=== PATIENT | female | born 1980 | race Hispanic/Latino ===

== ENCOUNTER 2018-02-04 21:28 | Inpatient (IN) | payer MEDICAID ==
[~2018-02-04] VITALS: Ht 154.9 cm; Wt 83.5 kg
[~2018-02-04 21:28] MED LIST: PREN-196 PO
[2018-02-04 22:00] VITALS: BP 120/78
[2018-02-04] MEDS ORDERED: NALOXONE HCL 0.4 MG/1 ML ML IV PRN (22:00)
[2018-02-04] MEDS ORDERED: EPHEDRINE SULFATE 50 MG/ML AMPULE IVP PRN (22:00)
[2018-02-04] MEDS ORDERED: AMPICILLIN 2GM+NS 100ML 100 ML IV SCH (22:00)
[2018-02-04] MEDS ORDERED: LACTATED RINGERS 500 ML 500 ML IV PRN (22:00)
[2018-02-04 22:26] LABS: APPEARANCE,URINE Cloudy (CLEAR); BILIRUBIN,URINE Negative (NEGATIVE); COLOR,URINE Yellow (YELLOW); GLUCOSE, URINE (UA) Negative (NEGATIVE); KETONES,URINE 15 mg/dL (NEGATIVE); LEUKOCYTE ESTERASE ,URINE Moderate (NEGATIVE); NITRATE,URINE Negative (NEGATIVE); OCCULT BLOOD,URINE Negative (NEGATIVE); PROTEIN,URINE Negative (NEGATIVE)
[2018-02-04] MEDS: LACTATED RINGERS 1000ML 1,000 ML IV PRN (22:43)
[2018-02-04 22:52] LABS: BACTERIA,URINE Moderate /HPF (None Seen); MUCUS,URINE Moderate LPF (None Seen); RBC,URINE 0-1 /HPF (0-1); SQUAMOUS EPITHELIAL CELL,UR Moderate /HPF (0-2)
[2018-02-04 22:59] LABS: AMPHET/METH SCREEN,URINE NEGATIVE (NEGATIVE); BARBITURATE SCREEN, URINE NEGATIVE (NEGATIVE); BENZODIAZEPINES SCREEN,URINE NEGATIVE (NEGATIVE); CANNABINOID SCREEN,URINE NEGATIVE (NEGATIVE); COCAINE SCREEN,URINE NEGATIVE (NEGATIVE); OPIATE SCREEN,URINE NEGATIVE (NEGATIVE); PHENCYCLIDINE SCREEN,URINE NEGATIVE (NEGATIVE)
[2018-02-04 23:26] LABS: HEMATOCRIT 35.1 % (36-48); MEAN CORPUSCULAR HEMOGLOBIN 31.8 pg (27.0-33.0); MEAN CORPUSCULAR HGB CONC 35.1 g/dL (32.0-36.0); MEAN CORPUSCULAR VOLUME 90.6 fL (79-99); NUCLEATED RED BLOOD CELLS 0.1 % (0.0-0.19); PLATELET COUNT (AUTO) 200 K/uL (130-400); RED BLOOD CELL COUNT(AUTO) 3.87 MIL/uL (4.00-5.50); RED CELL DISTRIBUTION WIDTH 18.4 % (11.0-15.5); WHITE BLOOD COUNT (AUTO) 7.7 K/uL (4.8-10.8)
[2018-02-05] VITALS (18 sets, daily range): BP systolic 99–137; BP diastolic 54–78
[2018-02-05] MEDS: AMPICILLIN 1GM+NS 50ML 50 ML IV SCH ×4 (01:59→14:00)
[2018-02-05] MEDS ORDERED: IRON1CAP32 PO (02:34)
[2018-02-05] MEDS ORDERED: PNV1COMB11 PO (02:34)
[2018-02-05] MEDS ORDERED: LACTATED RINGERS 1000ML 1,000 ML IV ONE (04:47)
[2018-02-05] MEDS ORDERED: OXYTOCIN 10 USP UNITS/ML ONE ×3 (04:48→18:26)
[2018-02-05] MEDS ORDERED: ROPIVACAINE 0.2%200ML EPIDURAL 200 ML EP SCH (05:00)
[2018-02-05] MEDS ORDERED: OXYTOCIN 10 USP UNITS/ML 20 UNIT in LACTATED RINGERS 1000ML 1,000 ML IV SCH (05:00)
[2018-02-05] MEDS: LACTATED RINGERS 1000ML 1,000 ML IV PRN (09:09)
[2018-02-05] MEDS: OXYTOCIN-LR 20 UNITS/1000 ML 1,000 ML IV SCH (12:15)
[2018-02-05] MEDS ORDERED: LIDOCAINE HCL-MPF 2% 10ML AMP IJ ONE (12:27)
[2018-02-05] MEDS ORDERED: MIDAZOLAM HCL 1 MG/ML 2ML VIAL ONE (12:47)
[2018-02-05] MEDS ORDERED: FENTANYL CITRATE PF 50 MCG/1 ML 2ML VIAL ONE (12:59)
[2018-02-05] MEDS ORDERED: BENZOCAINE/LANOLIN/ALOE VERA 60 ML AEROSOL TP PRN (13:45)
[2018-02-05] MEDS ORDERED: LANOLIN 30GM OINTMENT TP PRN (13:45)
[2018-02-05] MEDS ORDERED: MEASLES/MUMPS/RUBELLA VACCINE, LIVE 0.5 ML/VIAL SQ PRN (13:45)
[2018-02-05] MEDS ORDERED: WITCH HAZEL 1 PAD TP PRN (13:45)
[2018-02-05] MEDS ORDERED: MEPERIDINE-PF 50 MG/ML SYG SQ PRN (13:45)
[2018-02-05] MEDS ORDERED: PROMETHAZINE HCL 25 MG/ML 1ML AMPULE IM PRN (13:45)
[2018-02-05] MEDS: IBUPROFEN 800 MG TAB PO PRN ×2 (14:57→23:23)
[2018-02-05] MEDS: ACETAMINOPHEN-CODEINE 300/30MG TAB PO PRN (18:35)
[2018-02-05] MEDS: DOCUSATE SODIUM 100 MG CAP PO SCH (21:39)
[2018-02-06] MEDS: ACETAMINOPHEN-CODEINE 300/30MG TAB PO PRN ×2 (00:53→16:03)
[2018-02-06 03:06] VITALS: BP 102/65
[2018-02-06 06:47] LABS: HEMATOCRIT 33.1 % (36-48); MEAN CORPUSCULAR VOLUME 91.5 fL (79-99); PLATELET COUNT (AUTO) 157 K/uL (130-400); RED BLOOD CELL COUNT(AUTO) 3.61 MIL/uL (4.00-5.50); RED CELL DISTRIBUTION WIDTH 18.5 % (11.0-15.5); WHITE BLOOD COUNT (AUTO) 8.6 K/uL (4.8-10.8)
[2018-02-06 07:30] VITALS: BP 118/71
[2018-02-06 08:02] LABS: HEPATITIS Bs ANTIGEN SCREEN P Negative (Negative)
[2018-02-06] MEDS: DOCUSATE SODIUM 100 MG CAP PO SCH ×2 (09:29→21:36)
[2018-02-06] MEDS: IBUPROFEN 800 MG TAB PO PRN ×2 (09:30→19:52)
[2018-02-06 11:22] VITALS: BP 128/67
[2018-02-06] MEDS: OXYTOCIN-LR 20 UNITS/1000 ML 1,000 ML IV SCH (12:15)
[2018-02-06 15:21] VITALS: BP 129/70
[2018-02-06 19:15] VITALS: BP 121/76
[2018-02-06 23:02] VITALS: BP 121/74
[2018-02-07 03:34] VITALS: BP 132/83
[2018-02-07] MEDS: IBUPROFEN 800 MG TAB PO PRN (04:06)
[2018-02-07 07:35] VITALS: BP 101/56
[2018-02-07] MEDS: DOCUSATE SODIUM 100 MG CAP PO SCH (09:04)
[2018-02-07] MEDS: ACETAMINOPHEN-CODEINE 300/30MG TAB PO PRN (09:06)
[2018-02-07 11:09] VITALS: BP 115/62
[2018-02-07] MEDS ORDERED: DOCU240C80 PO (13:08)
[2018-02-07] MEDS ORDERED: MO8B PO (13:10)
[2018-02-07] MEDS ORDERED: ACET1TAB12 PO (13:11)
== END 2018-02-07 13:40 | disposition home or self-care (01) | DRG 541 ==
LOC: LDH 21:28 → WSH 02-05 13:15
PROC: 10E0XZZ Delivery of Products of Conception, External Approach (ICD-10-PCS; 2018-02-05)
PROC: 10907ZC Drainage of Amniotic Fluid, Therapeutic from Products of Conception, Via Natural or Artificial Opening (ICD-10-PCS; 2018-02-05)
PROC: 3E033VJ Introduction of Other Hormone into Peripheral Vein, Percutaneous Approach (ICD-10-PCS; 2018-02-05)
PROC: 3E0234Z Introduction of Serum, Toxoid and Vaccine into Muscle, Percutaneous Approach (ICD-10-PCS; 2018-02-05)
PROC: 3E0R3BZ Introduction of Anesthetic Agent into Spinal Canal, Percutaneous Approach (ICD-10-PCS; 2018-02-05)
PROC: 00HU33Z Insertion of Infusion Device into Spinal Canal, Percutaneous Approach (ICD-10-PCS; 2018-02-05)
PROC: 0UB70ZZ Excision of Bilateral Fallopian Tubes, Open Approach (ICD-10-PCS; principal; 2018-02-05 12:50)
DX: O99.824 Streptococcus B carrier state complicating childbirth (principal); Z23 Encounter for immunization; Z30.2 Encounter for sterilization; Z37.0 Single live birth; Z3A.39 39 weeks gestation of pregnancy
CPT/HCPCS: 36415; 80305; 81001; 85027; 86592; 86850; 86900; 86901; 87340; 88302; 90707; A4314; J0290; J2250; J2590; J3010; J3490; J7120